=== PATIENT | male | born 1975 | race Caucasian/White ===

== ENCOUNTER 2017-12-02 11:38 | Emergency (ER) | payer MEDICAID ==
[~2017-12-02] VITALS: Ht 177.8 cm; Wt 72.0 kg
[2017-12-02 11:39] VITALS: BP 127/82
[2017-12-02] MEDS ORDERED: KETOROLAC 30 MG/1 ML ONE (12:27)
[2017-12-02] MEDS ORDERED: KETOROLAC 30 MG/1 ML IM ONE (12:30)
== END 2017-12-02 13:01 | disposition home or self-care (01) ==
LOC: ED 12:27
DX: G89.29 Other chronic pain (principal); M25.511 Pain in right shoulder
CPT/HCPCS: 73030; 96372; 99284; J1885

== ENCOUNTER 2018-03-17 11:31 | Emergency (ER) | payer MEDICAID ==
[~2018-03-17] VITALS: Ht 177.8 cm; Wt 72.5 kg
[2018-03-17 11:32] VITALS: BP 121/80
[2018-03-17] MEDS ORDERED: CEFAZOLIN 1,000 MG IM ONE (12:30)
[2018-03-17] MEDS ORDERED: CEFAZOLIN 1,000 MG ONE (12:32)
== END 2018-03-17 12:48 | disposition home or self-care (01) ==
LOC: ED 12:35
DX: S61.451A Open bite of right hand, initial encounter (principal); L03.113 Cellulitis of right upper limb; F17.200 Nicotine dependence, unspecified, uncomplicated; W59.11XA Bitten by nonvenomous snake, initial encounter; Y93.89 Activity, other specified; Y92.009 Unspecified place in unspecified non-institutional (private) residence as the place of occurrence of the external cause; Y99.8 Other external cause status
CPT/HCPCS: 96372; 99283; J0690